=== PATIENT | female | born 1945 | race African-American/Black ===

== ENCOUNTER 2018-07-03 10:45 | Observation (INO) | payer OTHER ==
--- NOTE | 2018-07-03 10:52 | PDOC ---
History of Present Illness - General Chief Complaint: CVA/TIA Stated Complaint: TINGELING RT ARM Time Seen by Provider: 07/03/18 10:47 History Source: Patient Exam Limitations: No Limitations - History of Present Illness Initial Comments: 07/03/18 11:19 72 year old female with PMH HTN, hyperthyroidism, prediabetes presented to ED for right hand numbness/tingling since 0900 today. Pt stated her BP was elevated last night, but does not remember the number, and elevated this morning >200. She stated she checks her BP daily, but will not take her Losartan 100 mg if her BP is low. She denied visual changes, headache, weakness , chest pain, shortness of breath, back pain, abdominal pain, nausea, vomiting, lower extremity swelling. Allergies: NKDA tPA Exclusion Checklist 0-3hr - Time Elapsed Date last known well: 07/03/18 Time last known well: 09:00 Elaspsed time: 1 Day(s) and 3 Hour(s) and 3 Minutes - Exclusion Criteria 0-3hr SBP greater than 185 or DBP greater than 110mmHg despite tx: Yes Recent IC/spinal surgery,head trauma or stroke w/in last 3mo: No Hx of previous IC hemorrhage, IC neoplasm, AVM or aneurysm: No Active internal bleeding: No Blding diathesis(low plt ct, inc PTT,INR>1.7 or use of NOAC): No Symptoms suggest subarachnoid hemorrhage: No CT demonstrates multilobar infarct(>1/3 cerebral hemiphere): No Arterial puncture at noncompressible site in previous 7 days: No Blood glucose concentration less than 50mg/dL (2.7mmol/L): No - Relative Exclusion Criteria 0-3h Life expectancy <1yr/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 : No Patient/family refused: No Rapid improvement: No Stroke severity too mild: Yes Recent acute IN (w/in previous 3 months): No Seizure at onset with postictal residual neuro impairments: No Major surgery or serious trauma w/in previous 14 days: No Recent GI or hemorrhage (w/in previous 21 days): No - Ineligibility reason(s) Reasons No tPA given: See reason(s) noted above (Minor symptoms) NIH Stroke Scale - Last Known Well Date/Time & Onset Date Last Known Well: 07/03/18 Time Last Known Well: 09:00 - Initial Evaluation Level of consciousness: Alert Ask patient the month and their age: Answers both correctly Ask patient to open & close eyes; make fist and let go: Obeys both correctly Best gaze (horizontal eye movement): Normal Visual field testing: No visual field loss Facial paresis (Show teeth/raise eyebrows/close eyes tight): Normal symmetrical movement Motor Function: Left Arm: Normal Motor Function: Right Arm: Normal (extends arm 90 (or 45) degrees for 10 seconds without drift Motor Function: Left Leg: Normal (extends leg 30 degrees for 5 seconds without drift) Motor Function: Right Leg: Normal (extends leg 30 degrees for 5 seconds without drift) Limb Ataxia: No ataxia Sensory(Use pinprick test arms,legs,trunk,face/side to side): Normal Best language (Describe picture, name items, read sentences): No Aphasia Dysarthria (read several words): Normal articulation Extinction and Inattention: No abnormality - Total Score NIH Stroke Scale Score: 0 Past History - Past Medical History Allergies/Adverse Reactions: Allergies Allergy/AdvReac Type Severity Reaction Status Date / Time No Known Allergies Allergy Verified 07/03/18 10:47 Home Medications: Ambulatory Orders Aspirin [ASA -] 81 mg PO DAILY 07/03/18 Levothyroxine Sodium [Synthroid] 88 mcg PO DAILY 07/03/18 Losartan Potassium 100 mg PO DAILY 07/03/18 Omeprazole 20 mg PO DAILY 07/03/18 Review of Systems - Review of Systems Able to Perform ROS?: Yes Comments:: 07/03/18 11:21 General: denied fever, chills, night sweats, generalized weakness. HEENT: denied sore throat, rhinorrhea, ear pain. Heart: denied chest pain, palpitations, syncope, lower extremity swelling, diaphoresis. Respiratory: denied shortness of breath, cough, sputum production, hemoptysis. Abdomen: denied abdominal pain, nausea, vomiting, diarrhea, constipation, blood in stool. : denied dysuria, increased urinary frequency, hematuria, urinary incontinence , flank pain. Back: denied back pain. Musculoskeletal: denied joint pain, muscle pain, joint swelling. Neurological: admitted to numbness, tingling. denied headache, dizziness, weakness. Skin: denied rash, laceration, abrasion. *Physical Exam - Physical Exam Comments: 07/03/18 11:21 Constitutional: Well-nourished, Well-developed, appearing stated age. HEENT: head is normocephalic, atraumatic. EOMI. PERRLA. Neck: supple. Full ROM. Heart: regular rhythm. no murmurs, rubs or gallops. Lungs: clear to auscultation bilaterally. no crackles, rhonchi or wheezing. no stridor. Abdomen: soft, nontender. normal bowel sounds. no rebound, guarding, masses. Extremities: Peripheral pulses intact. No lower extremity edema. Neurological: Alert. Oriented x3. CN2-12 intact. 5/5 strength all extremities. Full sensation all extremities and bilateral face. Romberg negative. Finger to nose normal. Gait normal. Psych: awake, alert, oriented x3. Follows commands. Answers questions appropriately. ED Treatment Course - LABORATORY CBC & Chemistry Diagram: 07/04/18 07:25 07/04/18 07:25 Medical Decision Making - Medical Decision Making 07/03/18 11:22 72 year old female with above PMH presented to ED for entire hand (all fingers, dorsal and ventral) since 0900. Initial Vital Signs Temp Pulse Resp BP Pulse Ox 98 F 59 L 20 194/80 H 100 07/03/18 10:46 07/03/18 10:46 07/03/18 10:46 07/03/18 10:46 07/03/18 10:46 Afebrile. Mild bradycardia. No tachypnea. Hypertensive. No hypoxia on room air. Labs ordered: CBC, CMP, cardiac enzymes, TSH Imaging ordered: CT head Medications ordered: none EKG performed at 1135: rate 57, regular rhythm, single PAC, left axis, normal intervals, nonspecific ST changes. 07/03/18 13:10 CBC WBC 5.6 K/mm3 (4.0-10.8) 07/03/18 11:26 RBC 4.41 M/mm3 (3.60-5.2) 07/03/18 11:26 Hgb 12.9 GM/dl (10.7-15.3) 07/03/18 11:26 Hct 39.0 % (32.4-45.2) 07/03/18 11:26 MCV 88.4 fl (80-96) 07/03/18 11:26 MCH 29.3 pg (25.7-33.7) 07/03/18 11:26 MCHC 33.1 g/dl (32.0-36.0) 07/03/18 11:26 RDW 15.0 % (11.6-15.6) 07/03/18 11:26 Plt Count 254 K/MM3 (134-434) 07/03/18 11:26 MPV 8.6 fl (7.5-11.1) 07/03/18 11:26 Absolute Neuts (auto) 2.5 K/mm3 07/03/18 11:26 Neutrophils % 46.2 % (42.8-82.8) 07/03/18 11:26 Lymphocytes % 40.3 % (8-40) H 07/03/18 11:26 Monocytes % 9.2 % (3.8-10.2) 07/03/18 11:26 Eosinophils % 3.1 % (0-4.5) 07/03/18 11:26 Basophils % 1.2 % (0-2.0) 07/03/18 11:26 No leukocytosis. No anemia. CMP Sodium 136 mmol/L (136-145) 07/03/18 11:26 Potassium 4.2 mmol/L (3.5-5.1) 07/03/18 11:26 Chloride 101 mmol/L (98-107) 07/03/18 11:26 Carbon Dioxide 27 mmol/L (22-28) 07/03/18 11:26 Anion Gap 8 MMOL/L (8-16) 07/03/18 11:26 BUN 20 mg/dl (7-18) H 07/03/18 11:26 Creatinine 0.9 mg/dl (0.6-1.3) 07/03/18 11:26 Creat Clearance w eGFR > 60 (>60) 07/03/18 11:26 Random Glucose 99 mg/dl (74-106) 07/03/18 11:26 Calcium 9.3 mg/dl (8.4-10.2) 07/03/18 11:26 Total Bilirubin 0.5 mg/dl (0.2-1.0) 07/03/18 11:26 AST 22 U/L (10-42) 07/03/18 11:26 ALT 16 U/L (10-40) 07/03/18 11:26 Alkaline Phosphatase 67 U/L (32-92) 07/03/18 11:26 Creatine Kinase 110 IU/L (26-192) 07/03/18 11:26 Troponin I < 0.03 ng/ml (0.00-0.06) 07/03/18 11:37 Total Protein 6.8 g/dl (6.4-8.3) 07/03/18 11:26 Albumin 3.7 g/dl (3.5-5.0) 07/03/18 11:26 TSH 1.61 uIU/ml (0.358-3.74) 07/03/18 11:26 BUN/Cr >20 Pt dehydrated Troponin normal. No electrolyte abnormalities. No transaminitis. Normal TSH. CXR report: accentuate thoracic jyphosis. demineralized osseous structures. no active pulmonary disease. CT head report: small left basal ganglis infarct of indeterminate age on the basis of CT. mild to moderate periventricular ischemic changes are noted. Medications ordered: ASA 324 chew Pt to be admitted for stroke. Dr. Rodriguez informed of case, will see the patient tomorrow. Microblog sent. 07/03/18 13:30 I spoke with Pearl Bassett, who will admit the patient to Dr. Giacomo Tomlinson's care. Pending admission. *DC/Admit/Observation/Transfer Diagnosis at time of Disposition: Cerebrovascular accident (CVA), Hand numbness - Discharge Dispostion Condition at time of disposition: Stable Decision to Admit order: Yes - Referrals - Patient Instructions - Post Discharge Activity
[2018-07-03 12:07] LABS: BASO % 1.2 % (0-2.0); EOS % 3.1 % (0-4.5); HEMOGLOBIN 12.9 GM/dl (10.7-15.3); LYMPH % 40.3 % (8-40); MCH 29.3 pg (25.7-33.7); MCHC 33.1 g/dl (32.0-36.0); MEAN CELL VOLUME 88.4 fl (80-96); MEAN PLT VOLUME 8.6 fl (7.5-11.1); MONO % 9.2 % (3.8-10.2); NEUT % 46.2 % (42.8-82.8); PLATELET COUNT 254 K/MM3 (134-434); RBC 4.41 M/mm3 (3.60-5.2); WHITE BLOOD COUNT 5.6 K/mm3 (4.0-10.8)
[2018-07-03 12:13] LABS: ALBUMIN 3.7 g/dl (3.5-5.0); ALK PHOS 67 U/L (32-92); ANION GAP 8 MMOL/L (8-16); BILIRUBIN,TOTAL 0.5 mg/dl (0.2-1.0); BLOOD UREA NITROGEN 20 mg/dl (7-18); CALCIUM 9.3 mg/dl (8.4-10.2); CHLORIDE 101 mmol/L (98-107); CO2 27 mmol/L (22-28); CREATININE 0.9 mg/dl (0.6-1.3); GLUCOSE,RANDOM 99 mg/dl (74-106); POTASSIUM 4.2 mmol/L (3.5-5.1); SGOT/AST 22 U/L (10-42); SGPT/ALT 16 U/L (10-40); SODIUM 136 mmol/L (136-145); TOT PROT 6.8 g/dl (6.4-8.3)
[2018-07-03 12:27] LABS: ACTIVATED PTT 28.3 SECONDS (25.2-36.5); INR 1.09 (0.82-1.09); PROTHROMBIN TIME (PATIENT) 12.2 SEC (10.2-13.0)
[2018-07-03] MEDS ORDERED: ASPIRIN 81 MG CHEWABLE TABLETS PO ONE (12:47)
[2018-07-03] MEDS ORDERED: ASPIRIN 325 MG TABLET ONE (12:59)
[2018-07-03] MEDS ORDERED: ASPIRIN 81 MG CHEWABLE TABLETS ONE (13:00)
--- NOTE | 2018-07-03 13:21 | PDOC ---
Attending Attestation - Resident Resident Name: Nanda Sierra - ED Attending Attestation I have performed the following: I have examined & evaluated the patient, The case was reviewed & discussed with the resident, I agree w/resident's findings & plan, Exceptions are as noted - HPI HPI: 07/03/18 13:21 72 year old F c/ hx of HTN, hyperthyroidism, pre DM p/w R hand numbness since waking up this morning ~9 am. Yesterday, noted that her BP is increasing to closer to 200s. Pt reports adherence to her BP meds (which we found out from daughter that pt is not always adherent). Went to bed yesterday night without neuro complaints. Woke up this morning with R hand occasional clumsiness and numbness. Not in a dermatomal pattern. No chest pain or SOB. 1st time episode. - Physicial Exam PE: 07/03/18 13:25 GENERAL: Awake, alert, and fully oriented, in no acute distress HEAD: No signs of trauma EYES: PERRLA, EOMI, sclera anicteric, conjunctiva clear ENT: Auricles normal inspection, hearing grossly normal, nares patent, NECK: Normal ROM, supple LUNGS: Breath sounds equal, clear to auscultation bilaterally. No wheezes, and no crackles HEART: Regular rate and rhythm, normal S1 and S2, no murmurs, rubs or gallops ABDOMEN: Soft, normoactive bowel sounds. No guarding, no rebound. No masses EXTREMITIES: Normal range of motion, no edema. No clubbing or cyanosis. No cords, erythema, or tenderness NEUROLOGICAL: Cranial nerves II through XII intact. Normal speech, normal gait. 5/5 strength upper and lower extremities. No pronator drift. Pt has subjective decreased sensation along right hand. SKIN: Warm, Dry, normal turgor, no rashes or lesions noted. - Medical Decision Making 07/03/18 13:26 Vital Signs Temp Pulse Resp BP Pulse Ox 98 F 59 L 20 194/80 H 100 07/03/18 10:46 07/03/18 10:46 07/03/18 10:46 07/03/18 10:46 07/03/18 10:46 CT demonstrates an age-indeterminate infarct on L basal ganglia. Given R hand findings, this is concerning for new stroke. Pt given asa Case discussed with Dr. Rodriguez. requests MRI Brain, lipid panel and HgbA1c. Will admit for CVA. Heart Score/ECG Review #1 ECG reviewed & interpreted by me at: 11:35 07/03/18 13:20 NSR 57, LVH, T wave flat III, nonspecific T wave flattening V3-V4, no std/gala, QTC 426 msec NIH Stroke Scale - Last Known Well Date/Time & Onset Date Last Known Well: 07/02/18 - Initial Evaluation Level of consciousness: Alert Ask patient the month and their age: Answers both correctly Ask patient to open & close eyes; make fist and let go: Obeys both correctly Best gaze (horizontal eye movement): Normal Visual field testing: No visual field loss Facial paresis (Show teeth/raise eyebrows/close eyes tight): Normal symmetrical movement Motor Function: Left Arm: Normal Motor Function: Right Arm: Normal (extends arm 90 (or 45) degrees for 10 seconds without drift Motor Function: Left Leg: Normal (extends leg 30 degrees for 5 seconds without drift) Motor Function: Right Leg: Normal (extends leg 30 degrees for 5 seconds without drift) Limb Ataxia: No ataxia Sensory(Use pinprick test arms,legs,trunk,face/side to side): Mild to moderate decrease in sensation Best language (Describe picture, name items, read sentences): No Aphasia Dysarthria (read several words): Normal articulation Extinction and Inattention: No abnormality - Total Score NIH Stroke Scale Score: 1
[2018-07-03 13:22] LABS: CHOLESTEROL 224 mg/dl; HDL CHOLESTEROL 100 mg/dl (29-89); TRIGLYCERIDES 56 mg/dl (35-160)
[2018-07-03 13:44] LABS: LDL CHOLESTEROL (ONLY DFH) 113 mg/dl (0-100)
--- NOTE | 2018-07-03 15:27 | HP ---
CHIEF COMPLAINT: Right hand numbness/tingling PCP: Dr. Anthony, [place], [place] HISTORY OF PRESENT ILLNESS: 72 year old female with PMH HTN, hyperthyroidism, prediabetes presented to ED for right hand numbness and tingling x several hours. Patient awoke this morning with these symptoms which come and go without precipitating or alleviating factors. Initially she thought she slept wrong on her hand, but when the symptoms persisted she decided to come to the ED. Patient's BP this morning at home was 195/92 and 205/95 on successive readings. Patient admits she does not take medications on a regular basis incluidng ASA and losartan. Patient denies visual changes, headache, weakness, chest pain, shortness of breath, back pain, abdominal pain, nausea, vomiting, lower extremity swelling. ER course was notable for: (1) BP 194/80, p51 (2) CT head: small left basal ganglia infarct of indeterminate age (3) ASA 325mg x 1 Recent Travel: No PAST MEDICAL HISTORY: Hypertension Hyperthyroidism Prediabetes PAST SURGICAL HISTORY: None reported Social History: Smoking: no Alcohol: no Drugs: no Family History: Allergies No Known Allergies Allergy (Verified 07/03/18 10:47) HOME MEDICATIONS: Home Medications Medication Instructions Recorded Aspirin [ASA -] 81 mg PO DAILY 07/03/18 Levothyroxine Sodium [Synthroid] 88 mcg PO DAILY 07/03/18 Losartan Potassium 100 mg PO DAILY 07/03/18 Omeprazole 20 mg PO DAILY 07/03/18 REVIEW OF SYSTEMS CONSTITUTIONAL: Absent: fever, chills, diaphoresis, generalized weakness, malaise, loss of appetite, weight change HEENT: Absent: rhinorrhea, nasal congestion, throat pain, throat swelling, difficulty swallowing, mouth swelling, ear pain, eye pain, visual changes CARDIOVASCULAR: Absent: chest pain, syncope, palpitations, irregular heart rate, lightheadedness , peripheral edema RESPIRATORY: Absent: cough, shortness of breath, dyspnea with exertion, orthopnea, wheezing, stridor, hemoptysis GASTROINTESTINAL: Absent: abdominal pain, abdominal distension, nausea, vomiting, diarrhea, constipation, melena, hematochezia GENITOURINARY: Absent: dysuria, frequency, urgency, hesitancy, hematuria, flank pain, genital pain MUSCULOSKELETAL: Absent: myalgia, arthralgia, joint swelling, back pain, neck pain SKIN: Absent: rash, itching, pallor HEMATOLOGIC/IMMUNOLOGIC: Absent: easy bleeding, easy bruising, lymphadenopathy, frequent infections ENDOCRINE: Absent: unexplained weight gain, unexplained weight loss, heat intolerance, cold intolerance NEUROLOGIC: +numbness and paresthesia right hand Absent: headache, dizziness, unsteady gait, seizure, mental status changes, bladder or bowel incontinence PSYCHIATRIC: Absent: anxiety, depression, suicidal or homicidal ideation, hallucinations. PHYSICAL EXAMINATION Vital Signs - 24 hr 07/03/18 07/03/18 07/03/18 10:46 12:05 13:27 Temperature 98 F 98.4 F Pulse Rate 59 L Pulse Rate [ 53 L 51 L Right Radial] Respiratory 20 20 Rate Blood Pressure 194/80 H Blood Pressure 159/67 157/62 [Left Arm] O2 Sat by Pulse 100 100 99 Oximetry (%) GENERAL: Awake, alert, and fully oriented, in no acute distress. HEAD: Normal with no signs of trauma. EYES: Pupils equal, round and reactive to light, extraocular movements intact, sclera anicteric, conjunctiva clear. No lid lag. EARS, NOSE, THROAT: Ears normal, nares patent, oropharynx clear without exudates. Moist mucous membranes. NECK: Normal range of motion, supple without lymphadenopathy, JVD, or masses. LUNGS: Breath sounds equal, clear to auscultation bilaterally. No wheezes, and no crackles. No accessory muscle use. HEART: Regular rate and rhythm, normal S1 and S2 without murmur, rub or gallop. ABDOMEN: Soft, nontender, not distended, normoactive bowel sounds, no guarding, no rebound, no masses. No hepatomegaly or splenomegaly. MUSCULOSKELETAL: Normal range of motion at all joints. No bony deformities or tenderness. No CVA tenderness. UPPER EXTREMITIES: 2+ pulses, warm, well-perfused. No cyanosis. No clubbing. No peripheral edema. LOWER EXTREMITIES: 2+ pulses, warm, well-perfused. No calf tenderness. No peripheral edema. NEUROLOGICAL: Cranial nerves II-XII intact. Normal speech. Laboratory Results - last 24 hr 07/03/18 07/03/18 07/03/18 11:26 11:26 11:26 WBC 5.6 RBC 4.41 Hgb 12.9 Hct 39.0 MCV 88.4 MCH 29.3 MCHC 33.1 RDW 15.0 Plt Count 254 MPV 8.6 Absolute Neuts (auto) 2.5 Neutrophils % 46.2 Lymphocytes % 40.3 H Monocytes % 9.2 Eosinophils % 3.1 Basophils % 1.2 PT with INR 12.2 INR 1.09 PTT (Actin FS) 28.3 Sodium 136 Potassium 4.2 Chloride 101 Carbon Dioxide 27 Anion Gap 8 BUN 20 H Creatinine 0.9 Creat Clearance w eGFR > 60 Random Glucose 99 Hemoglobin A1c % Calcium 9.3 Total Bilirubin 0.5 AST 22 ALT 16 Alkaline Phosphatase 67 Creatine Kinase 110 Troponin I No Result Required. Total Protein 6.8 Albumin 3.7 Triglycerides Cholesterol Total LDL Cholesterol HDL Cholesterol TSH 1.61 Blood Type Antibody Screen 07/03/18 07/03/18 07/03/18 11:27 11:37 12:58 WBC RBC Hgb Hct MCV MCH MCHC RDW Plt Count MPV Absolute Neuts (auto) Neutrophils % Lymphocytes % Monocytes % Eosinophils % Basophils % PT with INR INR PTT (Actin FS) Sodium Potassium Chloride Carbon Dioxide Anion Gap BUN Creatinine Creat Clearance w eGFR Random Glucose Hemoglobin A1c % Calcium Total Bilirubin AST ALT Alkaline Phosphatase Creatine Kinase Troponin I < 0.03 Total Protein Albumin Triglycerides 56 Cholesterol 224 Total LDL Cholesterol 113 H HDL Cholesterol 100 H TSH Blood Type Cancelled Antibody Screen Cancelled 07/03/18 12:58 WBC RBC Hgb Hct MCV MCH MCHC RDW Plt Count MPV Absolute Neuts (auto) Neutrophils % Lymphocytes % Monocytes % Eosinophils % Basophils % PT with INR INR PTT (Actin FS) Sodium Potassium Chloride Carbon Dioxide Anion Gap BUN Creatinine Creat Clearance w eGFR Random Glucose Hemoglobin A1c % 6.2 Calcium Total Bilirubin AST ALT Alkaline Phosphatase Creatine Kinase Troponin I Total Protein Albumin Triglycerides Cholesterol Total LDL Cholesterol HDL Cholesterol TSH Blood Type Antibody Screen ASSESSMENT/PLAN: 72 year-old female with PMH significant for HTN, hyperthyroidism, and prediabetes. Placed on observation for right-hand weakness and CVA, acute v. chronic. CVA, acute v. chronic --presents with symptoms of right hand numbness and paresthesia; multiple risk factors --07/03 CT head: small basal ganglia infarct of indeterminate age --07/03 US carotids: no hemodynamically significant stenosis --MRI pending --Echo pending --start ASA 81mg and Lipitor 40mg Hypertension --BP 194/80 on admission, now 144/59 --hold home losartan to avoid too rapid drop in BP Hyperthyroidism --TSH wnl --continue levothyroxine Prediabetes --A1C 6.2 FEN Fluids: PO intake adequate Electrolytes: replete as indicated Nutrition: diabetic, low sodium DVT prophylaxis: subq heparin Dispo: continues to reqire observation. Full code. Visit type - Emergency Visit Emergency Visit: Yes ED Registration Date: 07/03/18 Care time: The patient presented to the Emergency Department on the above date and was hospitalized for further evaluation of their emergent condition. - New Patient This patient is new to me today: Yes Date on this admission: 07/05/18 - Critical Care Critical Care patient: No
[2018-07-03 18:01] VITALS: BMI 34.7
--- NOTE | 2018-07-03 18:56 | CON.NEURO ---
Consult - Alcohol/Substance Use Hx Alcohol Use: No - Smoking History Smoking history: Never smoked Have you smoked in the past 12 months: No Home Medications - Allergies Allergies/Adverse Reactions: Allergies Allergy/AdvReac Type Severity Reaction Status Date / Time No Known Allergies Allergy Verified 07/03/18 10:47 - Home Medications Home Medications: Ambulatory Orders Aspirin [ASA -] 81 mg PO DAILY 07/03/18 Levothyroxine Sodium [Synthroid] 88 mcg PO DAILY 07/03/18 Losartan Potassium 100 mg PO DAILY 07/03/18 Omeprazole 20 mg PO DAILY 07/03/18 Physical Exam-Neuro Vital Signs: Vital Signs Temperature 98.0 F 07/03/18 17:53 Pulse Rate 50 L 07/03/18 17:53 Respiratory Rate 18 07/03/18 17:53 Blood Pressure 150/68 07/03/18 17:53 O2 Sat by Pulse Oximetry (%) 100 07/03/18 17:05 Labs: CBC, BMP 07/03/18 11:26 07/03/18 11:26 INR, PTT INR 1.09 (0.82-1.09) 07/03/18 11:26 Assessment/Plan cc Right hand numbness lasting few hours HPI 72 year old female history of HTN, Hyperthyroidism, Prediabetes. She presented with right hand numbness, which resolved. Her bp was high at home and at hospital. She was suppose to take aspirin and statin but was not taking regularly. Non smoker. No cad. Her symptoms resolved and ct head showed left basal ganglia lacunar stroke. mri of brain is pending and carotid ultrasound is normal. PAST MEDICAL HISTORY: Hypertension Hyperthyroidism Prediabetes No Known Allergies Allergy (Verified 07/03/18 10:47) HOME MEDICATIONS: Home Medications Medication Instructions Recorded Aspirin [ASA -] 81 mg PO DAILY 07/03/18 Levothyroxine Sodium [Synthroid] 88 mcg PO DAILY 07/03/18 Losartan Potassium 100 mg PO DAILY 07/03/18 Omeprazole 20 mg PO DAILY 07/03/18 PFSH is noncontributory ROS reviwed in chart NEUROLOGICAL EXAMINATION Alert oriented x 3, speech is normal CN all intact, eomi, pupils reactive, no face asymmetry Motor 5/5 all intact Sensation is normal ct head showed left basal ganglia lacunar stroke mri of brain pending carotid ultrasound is normal Assessment 72 year old female history of HTN, Prediabets complain of right hand numbenss symptoms resolved. Most likely she had TIA. Plan : continue aspirin and statin - follow up on mri of brain after mri of brain she can be discharged - if symptoms ( right hand numbness) recurs , emg can be obtained outpatient Thanking you so much Noe Jamil MD
[2018-07-03] MEDS: ATORVASTATIN CA 40 MG TABLET (FP) PO SCH (21:20)
[2018-07-03] MEDS: HEPARIN NA (PORCINE) 5,000 UNITS/ML 1ML VIAL SQ SCH (21:20)
[2018-07-04] MEDS: LEVOTHYROXINE NA 88 MCG TABLET (FP) PO SCH (06:02)
[2018-07-04] MEDS: HEPARIN NA (PORCINE) 5,000 UNITS/ML 1ML VIAL SQ SCH ×3 (06:02→21:47)
[2018-07-04 08:07] LABS: EOS % 4.7 % (0-4.5); HEMATOCRIT 39.3 % (32.4-45.2); HEMOGLOBIN 12.6 GM/dl (10.7-15.3); LYMPH % 48.1 % (8-40); MCH 28.6 pg (25.7-33.7); MCHC 32.1 g/dl (32.0-36.0); MEAN PLT VOLUME 8.7 fl (7.5-11.1); MONO % 8.9 % (3.8-10.2); NEUT % 37.7 % (42.8-82.8); PLATELET COUNT 241 K/MM3 (134-434); RBC 4.41 M/mm3 (3.60-5.2); WHITE BLOOD COUNT 5.8 K/mm3 (4.0-10.8)
[2018-07-04 08:21] LABS: ALBUMIN 3.6 g/dl (3.5-5.0); ALK PHOS 65 U/L (32-92); ANION GAP 7 MMOL/L (8-16); BILIRUBIN,TOTAL 0.5 mg/dl (0.2-1.0); BLOOD UREA NITROGEN 18 mg/dl (7-18); CALCIUM 8.8 mg/dl (8.4-10.2); CHLORIDE 101 mmol/L (98-107); CO2 27 mmol/L (22-28); CREATININE 0.9 mg/dl (0.6-1.3); GLUCOSE,RANDOM 106 mg/dl (74-106); MAGNESIUM 1.7 mg/dL (1.8-2.4); POTASSIUM 3.7 mmol/L (3.5-5.1); SGOT/AST 20 U/L (10-42); SGPT/ALT 16 U/L (10-40); SODIUM 135 mmol/L (136-145); TOT PROT 6.7 g/dl (6.4-8.3)
[2018-07-04] MEDS ORDERED: MAGNESIUM OXIDE 400 MG TABLET (FP) PO ONE (09:45)
[2018-07-04] MEDS ORDERED: ASPIRIN COATED 81 MG TABLET.EC PO SCH (10:00)
--- NOTE | 2018-07-04 10:06 | EKG ---
Test Reason : Blood Pressure : / mmHG Vent. Rate : 057 BPM Atrial Rate : 057 BPM P-R Int : 192 ms QRS Dur : 082 ms QT Int : 438 ms P-R-T Axes : 031 -23 033 degrees QTc Int : 426 ms SINUS BRADYCARDIA WITH PREMATURE ATRIAL COMPLEXES MINIMAL VOLTAGE CRITERIA FOR LVH, MAY BE NORMAL VARIANT NONSPECIFIC T WAVE ABNORMALITY ABNORMAL ECG NO PREVIOUS ECGS AVAILABLE Confirmed by Nicholas Villagran MD ([id number]) on 07/04/2018 10:05:52 AM Referred By: WILI BRUCE Confirmed By:Nicholas Villagran MD
[2018-07-04] MEDS: ASPIRIN 81 MG CHEWABLE TABLETS PO SCH (10:20)
[2018-07-04] MEDS: LOSARTAN POTASSIUM 50 MG TABLET (FP) PO SCH (10:20)
--- NOTE | 2018-07-04 12:50 | ECHO ---
Name: YAA BARRIOS Exam:Adult Echocardiogram Study Date: 07/04/2018 10:56 AM Age: 72 yrs Reason For Study: CVA Height: 61 in Weight: 194 lb BSA: 1.9 m2 MMode/2D Measurements & Calculations IVSd: 0.93 cm Ao root diam: 3.5 cm LVIDd: 4.7 cm LA dimension: 4.3 cm LVIDs: 2.9 cm LVPWd: 1.1 cm EDV(Teich): 101.6 ml ESV(Tecaren): 33.4 ml Doppler Measurements & Calculations MV E max yuval: 77.7 cm/sec MV A max yuval: 55.2 cm/sec MV dec slope: 303.4 cm/sec2 MV E/A: 1.4 Ao V2 max: 89.8 cm/sec LV V1 max P.4 mmHg Ao max P.2 mmHg LV V1 max: 78.0 cm/sec PI end-d yuval: 103.4 cm/sec Procedure A complete two-dimensional transthoracic echocardiogram was performed (2D, M-mode, Doppler and color flow Doppler). Left Ventricle The left ventricular size, thickness and function are normal. Ejection Fraction = 65%. The transmitra l spectral Doppler flow pattern is suggestive of impaired LV relaxation. The left ventricular wall gerson on is normal. Right Ventricle The right ventricle is normal in size and function. Atria The left atrium is mildly dilated. Mitral Valve The mitral valve is grossly normal. There is trace mitral regurgitation. Tricuspid Valve The tricuspid valve is not well visualized, but is grossly normal. There is trace tricuspid regurgita tion. There was insufficient TR detected to calculate RV systolic pressure. Aortic Valve The aortic valve is normal in structure and function. Trace to mild aortic regurgitation. Pulmonic Valve The pulmonic valve is not well seen, but is grossly normal. Trace pulmonic valvular regurgitation. Great Vessels The aortic root is normal size. Pericardium/Pleura There is no pericardial effusion. There is no pleural effusion. Interpretation Summary The left ventricular size, thickness and function are normal Ejection Fraction = 65%. The left atrium is mildly dilated. There is trace mitral regurgitation. There is trace tricuspid regurgitation. Trace to mild aortic regurgitation. Trace pulmonic valvular regurgitation. MD Nicholas Villagran 07/04/2018 12:50 PM
--- NOTE | 2018-07-04 17:48 | PN ---
Progress Note (short form) - Note Progress Note: 72 year old female history of HTN, Hyperthyroidism, Prediabetes. She presented with right hand numbness, which resolved. Her bp was high at home and at hospital. She was suppose to take aspirin and statin but was not taking regularly. Non smoker. No cad. Her symptoms resolved and ct head showed left basal ganglia lacunar stroke. mri of brain is pending and carotid ultrasound is normal. Her mri of brain is normal, she is feeling good. no new syptoms, waiting to see other spatial scientist NEUROLOGICAL EXAMINATION Alert oriented x 3, speech is normal CN all intact, eomi, pupils reactive, no face asymmetry Motor 5/5 all intact Sensation is normal ct head showed left basal ganglia lacunar stroke mri of brain is normal carotid ultrasound is normal Assessment 72 year old female history of HTN, Prediabets complain of right hand numbenss symptoms resolved. Most likely she had TIA. Plan : continue aspirin and statin - she can be discharged from neuro point of view - if symptoms ( right hand numbness) recurs , emg can be obtained outpatient - she waiting to see other spatial scientist before getting discharged. Thanking you so much Noe Jamil MD
--- NOTE | 2018-07-04 21:33 | PN ---
Physical Exam: SUBJECTIVE: Patient seen and examined OBJECTIVE: Vital Signs Period Temp Pulse Resp BP Sys/Coleman Pulse Ox Last 24 Hr 97.9 F-98.4 F 48-72 18-19 125-159/47-75 97-100 GENERAL: The patient is awake, alert, and fully oriented, in no acute distress. HEAD: Normal with no signs of trauma. EYES: PERRL, extraocular movements intact, sclera anicteric, conjunctiva clear. No ptosis. ENT: Ears normal, nares patent, oropharynx clear without exudates, moist mucous membranes. NECK: Trachea midline, full range of motion, supple. LUNGS: Breath sounds equal, clear to auscultation bilaterally, no wheezes, no crackles, no accessory muscle use. HEART: Regular rate and rhythm, S1, S2 without murmur, rub or gallop. ABDOMEN: Soft, nontender, nondistended, normoactive bowel sounds, no guarding, no rebound, no hepatosplenomegaly, no masses. EXTREMITIES: 2+ pulses, warm, well-perfused, no edema. NEUROLOGICAL: Cranial nerves II through XII grossly intact. Normal speech, gait not observed. PSYCH: Normal mood, normal affect. SKIN: Warm, dry, normal turgor, no rashes or lesions noted Laboratory Results - last 24 hr 07/03/18 07/04/18 07/04/18 23:09 07:25 07:25 WBC 5.8 RBC 4.41 Hgb 12.6 Hct 39.3 MCV 89.0 MCH 28.6 MCHC 32.1 RDW 15.0 Plt Count 241 MPV 8.7 Absolute Neuts (auto) 2.2 Neutrophils % 37.7 L Lymphocytes % 48.1 H Monocytes % 8.9 Eosinophils % 4.7 H Sodium 135 L Potassium 3.7 Chloride 101 Carbon Dioxide 27 Anion Gap 7 L BUN 18 Creatinine 0.9 Creat Clearance w eGFR > 60 Random Glucose 106 Calcium 8.8 Magnesium 1.7 L Total Bilirubin 0.5 AST 20 ALT 16 Alkaline Phosphatase 65 Troponin I < 0.03 Total Protein 6.7 Albumin 3.6 Active Medications Generic Name Dose Route Start Last Admin Trade Name Freq PRN Reason Stop Dose Admin Aspirin 81 mg 07/04/18 10:00 07/04/18 10:20 Asa - PO 81 mg DAILY HECTOR Administration Atorvastatin Calcium 40 mg 07/03/18 22:00 07/03/18 21:20 Lipitor - PO 40 mg HS HECTOR Administration Heparin Sodium (Porcine) 5,000 unit 07/03/18 22:00 07/04/18 13:20 Heparin - SQ 5,000 unit TID HECTOR Administration Levothyroxine Sodium 88 mcg 07/04/18 07:00 07/04/18 06:02 Synthroid - PO 88 mcg DAILY@0700 HECTOR Administration Losartan Potassium 50 mg 07/04/18 10:00 07/04/18 10:20 Cozaar - PO 50 mg DAILY HECTOR Administration ASSESSMENT/PLAN:
--- NOTE | 2018-07-04 21:35 | CON.CARD ---
Consult Consult Specialty:: cardiology Reason for Consultation:: elevated BP; right hand numbness - History of Present Illness Chief Complaint: Pt A&Ox3; asymptomatic. History of Present Illness: 72 year old black female (toyin. Heidi) with PMH HTN, thyroid disorder, prediabetes, relativetly sedentary lifesytle, obesity, presented to ED for right hand numbness/tingling since 0900 today. Pt stated her BP was elevated last night, but does not remember the number, and elevated this morning >200. She stated she checks her BP daily, but will not take her Losartan 100 mg if her BP is low. She denied visual changes, headache, weakness, chest pain, shortness of breath, back pain, abdominal pain, nausea, vomiting, lower extremity swelling. Pt has PMD in [place]; she is on a visit to [place]. - History Source History Provided By: Patient, Medical Record Limitations to Obtaining History: No Limitations - Past Medical History Cardio/Vascular: Yes: HTN Reproductive: Yes: Postmenopausal ...: No - Alcohol/Substance Use Hx Alcohol Use: No - Smoking History Smoking history: Never smoked Have you smoked in the past 12 months: No Home Medications - Allergies Allergies/Adverse Reactions: Allergies Allergy/AdvReac Type Severity Reaction Status Date / Time No Known Allergies Allergy Verified 07/03/18 10:47 - Home Medications Home Medications: Ambulatory Orders Aspirin [ASA -] 81 mg PO DAILY 07/03/18 Levothyroxine Sodium [Synthroid] 88 mcg PO DAILY 07/03/18 Losartan Potassium 100 mg PO DAILY 07/03/18 Omeprazole 20 mg PO DAILY 07/03/18 Family Disease History - Family Disease History Family Disease History: Heart Disease: Mother (? CVA in her 50s) Review of Systems - Review of Systems Constitutional: reports: No Symptoms Eyes: reports: No Symptoms HENT: reports: No Symptoms Neck: reports: No Symptoms Cardiovascular: reports: No Symptoms Respiratory: reports: No Symptoms Gastrointestinal: reports: No Symptoms Genitourinary: reports: No Symptoms Breasts: reports: No Symptoms Reported Musculoskeletal: reports: Other (hand numbness) Integumentary: reports: No Symptoms Neurological: reports: Numbness Endocrine: reports: No Symptoms Hematology/Lymphatic: reports: No Symptoms Psychiatric: reports: No Symptoms - Risk Factors Known Risk Factors: Yes: Age, Diabetes Mellitus, Family History, Hypercholesterolemia, Hypertension, Physical Inactivity, Race Vital Signs: Vital Signs Temperature 98.2 F 07/04/18 20:17 Pulse Rate 56 L 07/04/18 20:17 Respiratory Rate 18 07/04/18 20:17 Blood Pressure 125/56 L 07/04/18 20:17 O2 Sat by Pulse Oximetry (%) 97 07/04/18 20:17 - Other Data Labs, Other Data: CBC, BMP 07/04/18 07:25 07/04/18 07:25 INR, PTT INR 1.09 (0.82-1.09) 07/03/18 11:26 Troponin, BNP 07/03/18 23:09 Troponin I < 0.03 Troponin, BNP 07/03/18 23:09 Troponin I < 0.03 Problem List - Problems (1) HTN (hypertension) Assessment/Plan: BP better-controlled now; continue losartan 100 mg daily. The crucial need to modify diet, decrease weight, and increase exercise in order to help control BP, glucose, and cholesterol was discussed in detail. Code(s): I10 - ESSENTIAL (PRIMARY) HYPERTENSION (2) Hand numbness Code(s): R20.0 - ANESTHESIA OF SKIN (3) Hyperlipidemia Assessment/Plan: Agree with atorvastatin, especially in light of pt's other risk factors for CAD. She may be able to stop the medication in the future if she changes diet, loses weight, and increases exercise. Code(s): E78.5 - HYPERLIPIDEMIA, UNSPECIFIED (4) Prediabetes Code(s): R73.03 - PREDIABETES (5) Obesity Code(s): E66.9 - OBESITY, UNSPECIFIED (6) Sedentary lifestyle Code(s): Z91.89 - OTH PERSONAL RISK FACTORS, NOT ELSEWHERE CLASSIFIED
[2018-07-04] MEDS: ATORVASTATIN CA 40 MG TABLET (FP) PO SCH (21:47)
[2018-07-05 06:07] VITALS: BP 144/72; PULSE 54; TEMP 98.3
[2018-07-05] MEDS: LEVOTHYROXINE NA 88 MCG TABLET (FP) PO SCH (06:51)
[2018-07-05] MEDS: HEPARIN NA (PORCINE) 5,000 UNITS/ML 1ML VIAL SQ SCH (06:51)
--- NOTE | 2018-07-05 08:26 | PN ---
Progress Note (short form) - Note Progress Note: 72 year old female history of HTN, Hyperthyroidism, Prediabetes. She presented with right hand numbness, which resolved. Her bp was high at home and at hospital. She was suppose to take aspirin and statin but was not taking regularly. Non smoker. No cad. Her symptoms resolved and ct head showed left basal ganglia lacunar stroke. mri of brain is pending and carotid ultrasound is normal. Her mri of brain is normal, she is feeling better. She was seen by incident response consultant last night. NEUROLOGICAL EXAMINATION Alert oriented x 3, speech is normal CN all intact, eomi, pupils reactive, no face asymmetry Motor 5/5 all intact Sensation is normal ct head showed left basal ganglia lacunar stroke mri of brain is normal carotid ultrasound is normal Assessment 72 year old female history of HTN, Prediabets complain of right hand numbenss symptoms resolved. Most likely she had TIA. Plan : continue aspirin and statin, can be discharged and follow up outpatient . - if symptoms ( right hand numbness) recurs , emg can be obtained outpatient - Thanking you so much Noe Jamil MD
[2018-07-05] MEDS: ASPIRIN 81 MG CHEWABLE TABLETS PO SCH (09:43)
[2018-07-05] MEDS: LOSARTAN POTASSIUM 50 MG TABLET (FP) PO SCH (09:43)
--- NOTE | 2018-07-05 09:58 | DS ---
Physical Exam: SUBJECTIVE: Patient seen and examined OBJECTIVE: Vital Signs Period Temp Pulse Resp BP Sys/Coleman Pulse Ox Last 24 Hr 97.9 F-98.3 F 54-72 18-18 125-156/47-75 96-100 PHYSICAL EXAM GENERAL: The patient is awake, alert, and fully oriented, in no acute distress. HEAD: Normal with no signs of trauma. EYES: PERRL, extraocular movements intact, sclera anicteric, conjunctiva clear. ENT: Ears normal, nares patent, oropharynx clear without exudates, moist mucous membranes. NECK: Trachea midline, full range of motion, supple. LUNGS: Breath sounds equal, clear to auscultation bilaterally, no wheezes, no crackles, no accessory muscle use. HEART: Regular rate and rhythm, S1, S2 without murmur, rub or gallop. ABDOMEN: Soft, nontender, nondistended, normoactive bowel sounds, no guarding, no rebound, no hepatosplenomegaly, no masses. EXTREMITIES: 2+ pulses, warm, well-perfused, no edema. NEUROLOGICAL: Cranial nerves II through XII grossly intact. Normal speech, gait not observed. PSYCH: Normal mood, normal affect. SKIN: Warm, dry, normal turgor, no rashes or lesions noted. LABS HOSPITAL COURSE: Date of Admission:07/03/18 Date of Discharge: 07/05/18 Minutes to complete discharge: 35 Discharge Summary Reason For Visit: RULE OUT STROKE Current Active Problems Cerebrovascular accident (CVA) (Acute) HTN (hypertension) (Acute) Hand numbness (Acute) Hyperlipidemia (Acute) Obesity (Acute) Prediabetes (Acute) Sedentary lifestyle (Acute) Condition: Stable - Instructions - Home Medications Comprehensive Discharge Medication List: Ambulatory Orders Aspirin [ASA -] 81 mg PO DAILY 07/03/18 Levothyroxine Sodium [Synthroid] 88 mcg PO DAILY 07/03/18 Losartan Potassium 100 mg PO DAILY 07/03/18 Omeprazole 20 mg PO DAILY 07/03/18 This patient is new to me today: No Emergency Visit: Yes ED Registration Date: 07/03/18 Care time: The patient presented to the Emergency Department on the above date and was hospitalized for further evaluation of their emergent condition. Critical Care patient: No - Discharge Referral Referred to [facility] Med P.C.: No
--- NOTE | 2018-07-05 10:51 | PN ---
Progress Note, Physician History of Present Illness: 72 year old black female (darius Gordon) with PMH HTN, thyroid disorder, prediabetes, relativetly sedentary lifesytle, obesity, presented to ED for right hand numbness/tingling since 0900 today. Pt stated her BP was elevated last night, but does not remember the number, and elevated this morning >200. She stated she checks her BP daily, but will not take her Losartan 100 mg if her BP is low. She denied visual changes, headache, weakness, chest pain, shortness of breath, back pain, abdominal pain, nausea, vomiting, lower extremity swelling. Pt has PMD in [place]; she is on a visit to [place]. - Current Medication List Current Medications: Active Medications Aspirin (Asa -) 81 mg PO DAILY [facility] Last Admin: 07/05/18 09:43 Dose: 81 mg Atorvastatin Calcium (Lipitor -) 40 mg PO HS [facility] Last Admin: 07/04/18 21:47 Dose: 40 mg Heparin Sodium (Porcine) (Heparin -) 5,000 unit SQ TID [facility] Last Admin: 07/05/18 06:51 Dose: 5,000 unit Levothyroxine Sodium (Synthroid -) 88 mcg PO DAILY@0700 [facility] Last Admin: 07/05/18 06:51 Dose: 88 mcg Losartan Potassium (Cozaar -) 50 mg PO DAILY [facility] Last Admin: 07/05/18 09:43 Dose: 50 mg - Objective Vital Signs: Vital Signs Temperature 98.3 F 07/05/18 06:00 Pulse Rate 54 L 07/05/18 06:00 Respiratory Rate 18 07/05/18 09:06 Blood Pressure 144/72 07/05/18 06:00 O2 Sat by Pulse Oximetry (%) 96 07/05/18 09:06 Eyes: Yes: WNL, Conjunctiva Clear, EOM Intact HENT: Yes: WNL, Atraumatic, Normocephalic Neck: Yes: WNL, Supple, Trachea Midline Cardiovascular: Yes: WNL, Regular Rate and Rhythm Respiratory: Yes: WNL, Regular, CTA Bilaterally Gastrointestinal: Yes: WNL, Normal Bowel Sounds Genitourinary: Yes: WNL Musculoskeletal: Yes: WNL Extremities: Yes: WNL Edema: No Integumentary: Yes: WNL Neurological: Yes: WNL, Alert, Oriented ...Motor Strength: WNL Psychiatric: Yes: WNL Labs: CBC, BMP 07/04/18 07:25 07/04/18 07:25 INR, PTT INR 1.09 (0.82-1.09) 07/03/18 11:26 Assessment/Plan - Problems (1) HTN (hypertension) Assessment/Plan: BP better-controlled now; continue losartan 100 mg daily. The crucial need to modify diet, decrease weight, and increase exercise in order to help control BP, glucose, and cholesterol was discussed in detail. Code(s): I10 - ESSENTIAL (PRIMARY) HYPERTENSION (2) Hand numbness Code(s): R20.0 - ANESTHESIA OF SKIN (3) Hyperlipidemia Assessment/Plan: Agree with atorvastatin, especially in light of pt's other risk factors for CAD. She may be able to stop the medication in the future if she changes diet, loses weight, and increases exercise. Code(s): E78.5 - HYPERLIPIDEMIA, UNSPECIFIED (4) Prediabetes Code(s): R73.03 - PREDIABETES (5) Obesity Code(s): E66.9 - OBESITY, UNSPECIFIED (6) Sedentary lifestyle Code(s): Z91.89 - OTH PERSONAL RISK FACTORS, NOT ELSEWHERE CLASSIFIED
== END 2018-07-05 12:40 | disposition home or self-care (01) ==
LOC: SUATTDRO 10:45 → FER 10:45 → INTOOBSV 13:16 → UNDOADMOB 13:16 → FM/S 13:16
PROVIDERS: ATTEND Nurse Practitioner Acute Care
PROC: 3E013GC Introduction of Other Therapeutic Substance into Subcutaneous Tissue, Percutaneous Approach (ICD-10-PCS; principal; 2018-07-03)
DX: I63.9 Cerebral infarction, unspecified (principal); I10 Essential (primary) hypertension; E05.90 Thyrotoxicosis, unspecified without thyrotoxic crisis or storm; R73.03 Prediabetes; R20.0 Anesthesia of skin; E66.9 Obesity, unspecified; Z68.34 Body mass index [BMI] 34.0-34.9, adult; Z91.89 Other specified personal risk factors, not elsewhere classified; E87.6 Hypokalemia
CPT/HCPCS: 36415; 70450-TC; 70551-TC; 71046-TC-FY; 80053; 80061; 82550; 83036; 83735; 84443; 84484; 85025; 85610; 85730; 93005; 93306-TC; 93880-TC; 96372; 97116-GP; 97161-GP; 99285-25; G0378; J1644